=== PATIENT | male | born 1965 | race Caucasian/White ===

== ENCOUNTER 2020-12-30 09:30 | Inpatient (IN) ==
[2020-12-30 11:10] LABS: Basophils # 0.1 K/mcL (0.0-0.2); Basophils % 0.4 %; Eosinophils # 0.2 K/mcL (0.0-0.6); Eosinophils % 1.2 %; Hematocrit 43.7 % (37.5-50.1); Hemoglobin 13.8 g/dL (12.9-16.9); Immature Granulocytes % 0.4 % (0-4); Lymphocytes # 1.2 K/mcL (0.6-4.6); Lymphocytes % 9.4 %; Mean Corpuscular HGB Conc 31.6 g/dL (31.6-35.5); Mean Corpuscular Hemoglobin 31.2 pg (28.0-33.3); Mean Corpuscular Volume 98.9 fL (83.0-100.0); Mean Platelet Volume 10.8 fL (9.4-12.4); Monocytes % 8.2 %; Platelet Count 244 K/mcL (140-400); Red Blood Count 4.42 M/mcL (4.19-5.50); Segmented Neutrophils % 80.4 %; White Blood Count 12.5 K/mcL (4.3-11.1)
[2020-12-30] MEDS ORDERED: Naloxone 0.4 MG/ML INJ IVP PRN (11:21)
[2020-12-30] MEDS ORDERED: Ondansetron 4 MG/2 ML VIAL IVP PRN (11:21)
[2020-12-30] MEDS ORDERED: *HR* Dextrose 50 % in Water (Vial) 50 ML VIAL IVP PRN (11:26)
[2020-12-30] MEDS ORDERED: Dextrose Gel 15 GM/37.5 ML TUBE PO PRN ×2 (11:26)
[2020-12-30] MEDS ORDERED: D5% in Water 1,000 ML IVC PRN (11:26)
[2020-12-30 11:27] LABS: BUN/Creatinine Ratio 24 (6-26); Blood Urea Nitrogen 19 mg/dL (6-20); Calcium 9.5 mg/dL (8.6-10.3); Carbon Dioxide 30 mEq/L (23-29); Chloride 103 mEq/L (98-107); Glucose 104 mg/dL (70-105); Osmolality,Calculated 291 (280-300); Potassium 4.6 mEq/L (3.5-5.1); Sodium 139 mEq/L (136-145); eGFR For African Americans > 60 (> 60); eGFR For Non-African Americans > 60 (> 60)
[2020-12-30] MEDS ORDERED: Insulin LISPRO 300 UNITS/3 ML VIAL SUBQ SCH (12:00)
[2020-12-30] MEDS: *HR* OxyCODONE Immed Rel 5 MG TABLET PO PRN ×2 (13:36→20:23)
[2020-12-30] MEDS: Insulin LISPRO 300 UNITS/3 ML VIAL SUBQ SCH ×2 (16:16→20:16)
[2020-12-30 18:44] LABS: Adenovirus Not Detected (Not Detect); Bordetella Pertussis Not Detected (Not Detect); Chlamydophila pneumoniae Not Detected (Not Detect); Coronavirus 229E Not Detected (Not Detect); Coronavirus HKU1 Not Detected (Not Detect); Coronavirus NL63 Not Detected (Not Detect); Coronavirus OC43 Not Detected (Not Detect); Human Metapneumovirus Not Detected (Not Detect); Human Rhinovirus/Enterovirus Not Detected (Not Detect); Influenza A Subtype 2009 H1 Not Detected (Not Detect); Influenza B Not Detected (Not Detect); Mycoplasma pneumoniae Not Detected (Not Detect); Parainfluenza Virus 1 Not Detected (Not Detect); Parainfluenza Virus 2 Not Detected (Not Detect); Parainfluenza Virus 3 Not Detected (Not Detect); Parainfluenza Virus 4 Not Detected (Not Detect); Respiratory Syncytial Virus Not Detected (Not Detect); SARS-CoV-2 Not Detected (Not Detect)
[2020-12-31] MEDS: *HR* OxyCODONE Immed Rel 5 MG TABLET PO PRN ×4 (02:42→23:58)
[2020-12-31 02:59] LABS: Basophils # 0.1 K/mcL (0.0-0.2); Basophils % 0.4 %; Eosinophils # 0.1 K/mcL (0.0-0.6); Eosinophils % 1.1 %; Hematocrit 41.7 % (37.5-50.1); Hemoglobin 13.3 g/dL (12.9-16.9); Immature Granulocytes % 0.3 % (0-4); Lymphocytes # 1.6 K/mcL (0.6-4.6); Lymphocytes % 13.9 %; Mean Corpuscular HGB Conc 31.9 g/dL (31.6-35.5); Mean Corpuscular Hemoglobin 31.1 pg (28.0-33.3); Mean Corpuscular Volume 97.7 fL (83.0-100.0); Mean Platelet Volume 10.6 fL (9.4-12.4); Monocytes # 1.2 K/mcL (0.0-1.3); Monocytes % 10.4 %; Neutrophils # 8.6 K/mcL (1.6-8.9); Platelet Count 236 K/mcL (140-400); Red Blood Count 4.27 M/mcL (4.19-5.50); Red Cell Distribution Width 13.2 % (11.5-14.5); Segmented Neutrophils % 73.9 %; White Blood Count 11.7 K/mcL (4.3-11.1)
[2020-12-31 03:04] LABS: INR 1.1; Prothrombin Time 12.9 Seconds (9.4-12.1)
[2020-12-31 03:07] LABS: Activated Partial Thrombo Time 31.3 Seconds (26.0-36.0)
[2020-12-31 03:17] LABS: BUN/Creatinine Ratio 26 (6-26); Blood Urea Nitrogen 18 mg/dL (6-20); Calcium 9.1 mg/dL (8.6-10.3); Carbon Dioxide 27 mEq/L (23-29); Chloride 100 mEq/L (98-107); Glucose 108 mg/dL (70-105); Magnesium 2.1 mg/dL (1.6-2.6); Osmolality,Calculated 280 (280-300); Phosphorous 3.6 mg/dL (2.7-4.5); Potassium 4.2 mEq/L (3.5-5.1); Sodium 134 mEq/L (136-145); eGFR For African Americans > 60 (> 60); eGFR For Non-African Americans > 60 (> 60)
[2020-12-31] MEDS: Insulin LISPRO 300 UNITS/3 ML VIAL SUBQ SCH ×4 (07:46→21:06)
[2020-12-31] MEDS ORDERED: Vancomycin 1,000 MG VIAL ONE (12:48)
[2020-12-31] MEDS ORDERED: Ethanol\\Acetic Acid\\Na Ace\\Ben 1,000 ML IRRIG.SOLN IR ONE (12:48)
[2020-12-31] MEDS ORDERED: Ondansetron 4 MG/2 ML VIAL IVP PRN ×2 (12:58→16:04)
[2020-12-31] MEDS ORDERED: *HR* FentaNYL (PF) 100 MCG/2 ML VIAL IVP PRN (12:58)
[2020-12-31] MEDS ORDERED: *HR* OxyCODONE Immed Rel 5 MG TABLET PO PRN (12:58)
[2020-12-31] MEDS ORDERED: Ringers Solution, Lactated 1,000 ML IVC SCH ×2 (13:00→16:04)
[2020-12-31] MEDS ORDERED: *HR* FentaNYL (PF) 100 MCG/2 ML VIAL ONE (13:18)
[2020-12-31] MEDS ORDERED: *HR* Midazolam HCl 2 MG/2 ML VIAL ONE (13:18)
[2020-12-31] MEDS ORDERED: *HR* Propofol 200 MG/20 ML VIAL IVP ONE (13:40)
[2020-12-31] MEDS ORDERED: *HR* PHENYLEPHRINE 1,000 MCG/10 ML SYRINGE IVP ONE (14:05)
[2020-12-31] MEDS ORDERED: ceFAZolin 3,000 MG in Water for inj. (sterile) 30 ML IVP ONE (14:09)
[2020-12-31] MEDS ORDERED: Vancomycin 2,000 MG/520 ML IV.SOLN IVPB ONE (14:13)
[2020-12-31] MEDS ORDERED: Tranexamic Acid 1,000 MG/10 ML VIAL ONE (14:20)
[2020-12-31] MEDS ORDERED: Dexamethasone 4 MG/ML VIAL ONE (14:24)
[2020-12-31] MEDS ORDERED: Ondansetron 4 MG/2 ML VIAL ONE (14:24)
[2020-12-31] MEDS ORDERED: CeFAZolin Syr 3,000MG/30 ML 3,000 MG/30 ML SYRINGE IVPB ONE (15:15)
[2020-12-31] MEDS ORDERED: Povidone-Iodine 45 ML, Sodium Chloride IRRigation 1,000 ML IR ONE (15:55)
[2020-12-31] MEDS ORDERED: Naloxone 0.4 MG/ML INJ IVP PRN (16:04)
[2020-12-31] MEDS ORDERED: D5% in Water 1,000 ML IVC PRN (16:04)
[2020-12-31] MEDS ORDERED: *HR* Promethazine 25 MG/ML VIAL IM PRN (16:04)
[2020-12-31] MEDS ORDERED: Sennosides 8.6 MG TABLET PO PRN (16:04)
[2020-12-31] MEDS ORDERED: *HR* Dextrose 50 % in Water (Vial) 50 ML VIAL IVP PRN (16:04)
[2020-12-31] MEDS ORDERED: MOM Conc 10 ML UD.LIQ PO PRN (16:04)
[2020-12-31] MEDS ORDERED: Dextrose Gel 15 GM/37.5 ML TUBE PO PRN ×2 (16:04)
[2020-12-31] MEDS: Gabapentin 300 MG CAPSULE PO SCH ×2 (16:53→21:07)
[2020-12-31] MEDS: Ascorbic Acid 500 MG TABLET PO SCH (16:53)
[2020-12-31] MEDS: ceFAZolin 3,000 MG in 0.9 % Sodium Chloride 100 ML IVPB SCH (21:20)
[2021-01-01 01:14] LABS: Basophils % 0.1 %; Hematocrit 40.6 % (37.5-50.1); Hemoglobin 12.9 g/dL (12.9-16.9); Immature Granulocytes % 0.4 % (0-4); Lymphocytes # 0.8 K/mcL (0.6-4.6); Mean Corpuscular HGB Conc 31.8 g/dL (31.6-35.5); Mean Corpuscular Hemoglobin 31.4 pg (28.0-33.3); Mean Corpuscular Volume 98.8 fL (83.0-100.0); Mean Platelet Volume 11.1 fL (9.4-12.4); Neutrophils # 10.2 K/mcL (1.6-8.9); Platelet Count 229 K/mcL (140-400); Red Blood Count 4.11 M/mcL (4.19-5.50); Red Cell Distribution Width 12.8 % (11.5-14.5); Segmented Neutrophils % 84.5 %; White Blood Count 12.1 K/mcL (4.3-11.1)
[2021-01-01 01:24] LABS: BUN/Creatinine Ratio 19 (6-26); Blood Urea Nitrogen 17 mg/dL (6-20); Calcium 9.3 mg/dL (8.6-10.3); Carbon Dioxide 30 mEq/L (23-29); Chloride 99 mEq/L (98-107); Glucose 126 mg/dL (70-105); Osmolality,Calculated 283 (280-300); Potassium 4.9 mEq/L (3.5-5.1); Sodium 135 mEq/L (136-145); eGFR For African Americans > 60 (> 60); eGFR For Non-African Americans > 60 (> 60)
[2021-01-01] MEDS: Vancomycin 1,750 MG/517.5 ML IV.SOLN IVPB SCH ×2 (02:34→15:11)
[2021-01-01] MEDS: ceFAZolin 3,000 MG in 0.9 % Sodium Chloride 100 ML IVPB SCH (05:32)
[2021-01-01] MEDS: *HR* OxyCODONE Immed Rel 5 MG TABLET PO PRN (06:26)
[2021-01-01] MEDS: Insulin LISPRO 300 UNITS/3 ML VIAL SUBQ SCH ×4 (08:21→20:18)
[2021-01-01] MEDS: Ascorbic Acid 500 MG TABLET PO SCH ×2 (08:31→15:12)
[2021-01-01] MEDS: Celecoxib 200 MG CAPSULE PO SCH (08:31)
[2021-01-01] MEDS: Multivit/Ca/Min/Fe/FA 1 TAB TABLET PO SCH (08:31)
[2021-01-01] MEDS: Gabapentin 300 MG CAPSULE PO SCH ×3 (08:31→20:17)
[2021-01-01] MEDS: *HR* Metformin 500 MG TABLET PO SCH (08:31)
[2021-01-01 10:03] LABS: Phosphorous 3.7 mg/dL (2.7-4.5)
[2021-01-01] MEDS ORDERED: Ketorolac 30 MG/ML VIAL IVP ONE (11:39)
[2021-01-01] MEDS: Aspirin Enteric Coated 81 MG Tablet PO SCH (15:12)
[2021-01-02] MEDS: Vancomycin 1,750 MG/517.5 ML IV.SOLN IVPB SCH ×2 (03:32→14:59)
[2021-01-02 06:04] LABS: Basophils # 0.1 K/mcL (0.0-0.2); Basophils % 0.6 %; Eosinophils # 0.3 K/mcL (0.0-0.6); Eosinophils % 2.4 %; Hematocrit 37.5 % (37.5-50.1); Hemoglobin 11.9 g/dL (12.9-16.9); Immature Granulocytes % 0.4 % (0-4); Lymphocytes # 1.9 K/mcL (0.6-4.6); Lymphocytes % 17.1 %; Mean Corpuscular HGB Conc 31.7 g/dL (31.6-35.5); Mean Corpuscular Hemoglobin 31.2 pg (28.0-33.3); Mean Corpuscular Volume 98.2 fL (83.0-100.0); Monocytes # 1.6 K/mcL (0.0-1.3); Monocytes % 13.8 %; Neutrophils # 7.4 K/mcL (1.6-8.9); Platelet Count 206 K/mcL (140-400); Red Blood Count 3.82 M/mcL (4.19-5.50); Red Cell Distribution Width 12.9 % (11.5-14.5); Segmented Neutrophils % 65.7 %; White Blood Count 11.3 K/mcL (4.3-11.1)
[2021-01-02 06:23] LABS: BUN/Creatinine Ratio 31 (6-26); Blood Urea Nitrogen 23 mg/dL (6-20); Calcium 8.8 mg/dL (8.6-10.3); Carbon Dioxide 30 mEq/L (23-29); Chloride 100 mEq/L (98-107); Glucose 103 mg/dL (70-105); Osmolality,Calculated 286 (280-300); Sodium 136 mEq/L (136-145); eGFR For African Americans > 60 (> 60); eGFR For Non-African Americans > 60 (> 60)
[2021-01-02] MEDS ORDERED: 0.9 % Sodium Chloride 250 ML IVC SCH (07:45)
[2021-01-02] MEDS: Insulin LISPRO 300 UNITS/3 ML VIAL SUBQ SCH ×4 (08:30→19:55)
[2021-01-02] MEDS: *HR* Metformin 500 MG TABLET PO SCH (09:21)
[2021-01-02] MEDS: Gabapentin 300 MG CAPSULE PO SCH ×3 (09:21→19:54)
[2021-01-02] MEDS: Celecoxib 200 MG CAPSULE PO SCH (09:22)
[2021-01-02] MEDS: Ascorbic Acid 500 MG TABLET PO SCH ×2 (09:22→17:45)
[2021-01-02] MEDS: Multivit/Ca/Min/Fe/FA 1 TAB TABLET PO SCH (09:22)
[2021-01-02] MEDS: Aspirin Enteric Coated 81 MG Tablet PO SCH (09:22)
[2021-01-02] MEDS: *HR* OxyCODONE Immed Rel 5 MG TABLET PO PRN (09:29)
[2021-01-03 01:36] LABS: Basophils # 0.1 K/mcL (0.0-0.2); Basophils % 0.5 %; Eosinophils # 0.6 K/mcL (0.0-0.6); Eosinophils % 5.2 %; Hematocrit 37.6 % (37.5-50.1); Hemoglobin 11.9 g/dL (12.9-16.9); Immature Granulocytes % 0.4 % (0-4); Lymphocytes # 1.8 K/mcL (0.6-4.6); Lymphocytes % 16.4 %; Mean Corpuscular HGB Conc 31.6 g/dL (31.6-35.5); Mean Corpuscular Hemoglobin 31.2 pg (28.0-33.3); Mean Corpuscular Volume 98.7 fL (83.0-100.0); Mean Platelet Volume 10.9 fL (9.4-12.4); Monocytes # 1.6 K/mcL (0.0-1.3); Monocytes % 14.1 %; Platelet Count 210 K/mcL (140-400); Red Blood Count 3.81 M/mcL (4.19-5.50); Segmented Neutrophils % 63.4 %
[2021-01-03 01:51] LABS: BUN/Creatinine Ratio 28 (6-26); Blood Urea Nitrogen 20 mg/dL (6-20); Calcium 8.7 mg/dL (8.6-10.3); Carbon Dioxide 31 mEq/L (23-29); Chloride 102 mEq/L (98-107); Glucose 109 mg/dL (70-105); Osmolality,Calculated 289 (280-300); Potassium 4.5 mEq/L (3.5-5.1); Sodium 138 mEq/L (136-145); eGFR For African Americans > 60 (> 60); eGFR For Non-African Americans > 60 (> 60)
[2021-01-03] MEDS: Vancomycin 1,750 MG/517.5 ML IV.SOLN IVPB SCH (02:41)
[2021-01-03] MEDS: Insulin LISPRO 300 UNITS/3 ML VIAL SUBQ SCH (08:33)
[2021-01-03] MEDS: *HR* Metformin 500 MG TABLET PO SCH (08:36)
[2021-01-03] MEDS: Multivit/Ca/Min/Fe/FA 1 TAB TABLET PO SCH (08:36)
[2021-01-03] MEDS: Aspirin Enteric Coated 81 MG Tablet PO SCH (08:36)
[2021-01-03] MEDS: Gabapentin 300 MG CAPSULE PO SCH (08:37)
[2021-01-03] MEDS: Celecoxib 200 MG CAPSULE PO SCH (08:37)
[2021-01-03] MEDS: Ascorbic Acid 500 MG TABLET PO SCH (08:37)
[2021-01-03 11:22] VITALS: BP 128/75
== END 2021-01-03 13:30 | disposition home or self-care (01) | DRG 468 ==
LOC: 3NENU 09:30 → EMEROOARM 09:30 → SUATTDRO 12:21 → 3NENU 12:58
PROVIDERS: ADMIT Internal Medicine; ATTEND Internal Medicine